=== PATIENT | female | born 1935 | race Two or more races ===

== ENCOUNTER 2022-04-21 11:37 | Inpatient (IN) | payer BC ==
[~2022-04-21] VITALS: Ht 162.6 cm; Wt 57.2 kg
[2022-04-21] MEDS ORDERED: SODIUM CHLORIDE 0.9% 1,000 ML IV ONE (13:00)
[2022-04-21 17:02] LABS: CHLORIDE 106 mEq/L (98-107)
[2022-04-21 19:12] LABS: BASOPHILS % 0.3 % (0.0-2.0); EOSINOPHILS % 0.8 % (0.0-5.0); HEMATOCRIT. 38.8 % (36.0-48.0); HEMOGLOBIN. 12.6 g/dL (12.0-16.0); LYMPHOCYTES % 19.3 % (20.0-50.0); MEAN CORPUSCULAR VOLUME 92.2 fL (81.0-99.0); MEAN PLATELET VOLUME 8.4 fl (7.4-10.4); MONOCYTES % 8.1 % (2.0-8.0); NEUTROPHILS % 71.5 % (40.0-76.0); PLATELET 182 x1000/uL (130-400); RED BLOOD CELL COUNT 4.21 mill/uL (4.2-5.4)
[2022-04-21 19:14] LABS: CLARITY URINE CLOUDY (CLEAR); COLOR URINE YELLOW (YELLOW); KETONES URINE NEGATIVE (NEGATIVE); LEUKOCYTE ESTERASE URINE 2+ (NEGATIVE); NITRITE URINE POSITIVE (NEGATIVE); OCCULT BLOOD URINE 1+ (NEGATIVE); PROTEIN URINE NEGATIVE (NEGATIVE); SPECIFIC GRAVITY URINE 1.011 (1.005-1.030); UROBILINOGEN URINE 0.2 E.U./dL (0.2-1.0)
[2022-04-21] MEDS ORDERED: CEFTRIAXONE 1 G PREMIX 50 ML IV ONE (19:30)
[2022-04-21] MEDS ORDERED: DEXTROSE 50% WATER 50ML SYRINGE IV PRN (22:15)
[2022-04-21] MEDS ORDERED: KETOROLAC 15MG/ML VIAL IV PRN (22:15)
[2022-04-21] MEDS ORDERED: NITROGLYCERIN 0.4MG TABLET SL SL PRN (22:15)
[2022-04-21] MEDS ORDERED: IPRATROPIUM/ALBUTEROL 0.5-3(2.5)MG/3ML NEB NEB PRN (22:15)
[2022-04-21] MEDS ORDERED: DOCUSATE SODIUM 100MG CAPSULE PO PRN (22:15)
[2022-04-21] MEDS ORDERED: ALBUTEROL (0.083%) 2.5MG/3ML NEB HHN PRN (22:15)
[2022-04-21] MEDS ORDERED: GUAIFENESIN 200MG/10ML SUGAR FREE UDC PO PRN (22:15)
[2022-04-21] MEDS ORDERED: ONDANSETRON HCL 4MG/2ML INJ IV PRN (22:15)
[2022-04-21] MEDS ORDERED: IPRATROPIUM BROMIDE (0.02%) 0.5MG/2.5ML NEB HHN PRN (22:15)
[2022-04-21] MEDS ORDERED: ACETAMINOPHEN 325MG TABLET PO PRN ×2 (22:15)
[2022-04-21] MEDS ORDERED: MAGNESIUM/ALUMINUM HYDROXIDE/SIMETHICONE 30ML UDC PO PRN (22:15)
[2022-04-21] MEDS: MEROPENEM 1,000 MG in SODIUM CHLORIDE 0.9% 100 ML IV SCH (23:45)
[2022-04-22] VITALS (8 sets, daily range): BP systolic 132–209; BP diastolic 57–94
[2022-04-22 00:06] LABS: T4 FREE 1.09 ng/dL (0.76-1.46)
[2022-04-22 00:31] LABS: FOLIC ACID (FOLATE) SERUM 12.2 ng/mL (>5.38)
[2022-04-22] MEDS: ZOLPIDEM TARTRATE 5MG TABLET PO PRN ×2 (01:31→21:36)
[2022-04-22] MEDS: CLONIDINE 0.1MG TABLET PO PRN ×2 (02:00→21:36)
[2022-04-22 02:49] LABS: *AMPHETAMINES SCREEN URINE NEGATIVE (NEGATIVE); *BARBITURATES SCREEN URINE NEGATIVE (NEGATIVE); *BENZODIAZEPINES SCREEN URINE NEGATIVE (NEGATIVE); *COCAINE SCREEN URINE NEGATIVE (NEGATIVE); CANNABINOID URINE SCREEN NEGATIVE (NEGATIVE); METHADONE URINE SCREEN NEGATIVE (NEGATIVE); OPIATES URINE SCREEN NEGATIVE (NEGATIVE); PHENCYCLIDINE URINE SCREEN NEGATIVE (NEGATIVE)
[2022-04-22] MEDS: INSULIN LISPRO 100 UNITS/ML SUBCUT SCH ×4 (06:31→21:00)
[2022-04-22] MEDS: BLOOD SUGAR DIAGNOSTIC STRIP TEST SCH ×4 (06:31→21:39)
[2022-04-22 06:45] LABS: BASOPHILS % 0.7 % (0.0-2.0); EOSINOPHILS % 1.2 % (0.0-5.0); HEMATOCRIT. 33.3 % (36.0-48.0); HEMOGLOBIN. 11.1 g/dL (12.0-16.0); LYMPHOCYTES % 24.3 % (20.0-50.0); MEAN CORPUSCULAR HEMOGLOBIN 30.6 pg (28.0-32.0); MEAN CORPUSCULAR VOLUME 91.6 fL (81.0-99.0); MEAN PLATELET VOLUME 8.7 fl (7.4-10.4); NEUTROPHILS % 62.8 % (40.0-76.0); PLATELET 175 x1000/uL (130-400); RED BLOOD CELL COUNT 3.63 mill/uL (4.2-5.4); RED CELL DISTRIBUTION WIDTH 14.6 % (11.6-14.6)
[2022-04-22] MEDS: MEROPENEM 1,000 MG in SODIUM CHLORIDE 0.9% 100 ML IV SCH ×3 (06:48→21:53)
[2022-04-22 07:33] LABS: CHLORIDE 106 mEq/L (98-107)
[2022-04-22 07:48] LABS: CREATINE KINASE 69 IU/L (26-192); CREATINE KINASE MB FRACTION 1.1 ng/mL (0.5-3.6); PHOSPHORUS 3.4 mg/dL (2.5-4.9)
[2022-04-22] MEDS: ENOXAPARIN 30MG/0.3ML SYR SUBCUT SCH (09:15)
[2022-04-22] MEDS: AMLODIPINE 10MG TABLET PO SCH (09:15)
[2022-04-22] MEDS: ASCORBIC ACID 500 MG TABLET PO SCH ×2 (09:15→21:36)
[2022-04-22] MEDS: ASPIRIN 81MG EC TABLET PO SCH (09:15)
[2022-04-22] MEDS: ZINC SULFATE 220 MG ( 50 ) CAPSULE PO SCH (09:15)
[2022-04-22] MEDS: FAMOTIDINE 20MG TABLET PO SCH (09:15)
[2022-04-22 16:24] LABS: CREATINE KINASE MB FRACTION 1.4 ng/mL (0.5-3.6)
[2022-04-23] VITALS: BP 184/88
[2022-04-23 04:00] VITALS: BP 185/76
[2022-04-23] MEDS: CLONIDINE 0.1MG TABLET PO PRN (04:32)
[2022-04-23] MEDS: BLOOD SUGAR DIAGNOSTIC STRIP TEST SCH ×4 (06:02→20:29)
[2022-04-23] MEDS: INSULIN LISPRO 100 UNITS/ML SUBCUT SCH ×4 (06:10→20:29)
[2022-04-23] MEDS: MEROPENEM 1,000 MG in SODIUM CHLORIDE 0.9% 100 ML IV SCH ×2 (06:12→13:09)
[2022-04-23 08:00] VITALS: BP 125/56
[2022-04-23] MEDS: ASCORBIC ACID 500 MG TABLET PO SCH ×2 (10:06→20:29)
[2022-04-23] MEDS: ASPIRIN 81MG EC TABLET PO SCH (10:06)
[2022-04-23] MEDS: FAMOTIDINE 20MG TABLET PO SCH (10:06)
[2022-04-23] MEDS: ENOXAPARIN 30MG/0.3ML SYR SUBCUT SCH (10:07)
[2022-04-23] MEDS: ZINC SULFATE 220 MG ( 50 ) CAPSULE PO SCH (10:07)
[2022-04-23] MEDS: AMLODIPINE 10MG TABLET PO SCH (10:07)
[2022-04-23 12:00] VITALS: BP 137/71
[2022-04-23 16:00] VITALS: BP 148/62
[2022-04-23] MEDS ORDERED: ATOR20TA65 PO (17:15)
[2022-04-23] MEDS ORDERED: MEMA5TAB42 PO (17:15)
[2022-04-23] MEDS ORDERED: BRIM10DR18 (17:15)
[2022-04-23] MEDS ORDERED: ATEN50TA MT (17:15)
[2022-04-23 20:00] VITALS: BP 150/58
[2022-04-24] VITALS: BP 158/75
[2022-04-24 04:00] VITALS: BP 161/73
[2022-04-24] MEDS: MEROPENEM 1,000 MG in SODIUM CHLORIDE 0.9% 100 ML IV SCH ×2 (05:02→18:54)
[2022-04-24] MEDS: CLONIDINE 0.1MG TABLET PO PRN (05:03)
[2022-04-24] MEDS: INSULIN LISPRO 100 UNITS/ML SUBCUT SCH ×4 (05:52→21:55)
[2022-04-24] MEDS: BLOOD SUGAR DIAGNOSTIC STRIP TEST SCH ×4 (05:52→21:50)
[2022-04-24 08:00] VITALS: BP 169/78
[2022-04-24] MEDS: FAMOTIDINE 20MG TABLET PO SCH (09:06)
[2022-04-24] MEDS: ZINC SULFATE 220 MG ( 50 ) CAPSULE PO SCH (09:06)
[2022-04-24] MEDS: ENOXAPARIN 30MG/0.3ML SYR SUBCUT SCH (09:06)
[2022-04-24] MEDS: ASPIRIN 81MG EC TABLET PO SCH (09:06)
[2022-04-24] MEDS: ASCORBIC ACID 500 MG TABLET PO SCH ×2 (09:06→21:01)
[2022-04-24] MEDS: AMLODIPINE 10MG TABLET PO SCH (09:06)
[2022-04-24 12:00] VITALS: BP 152/80
[2022-04-24 16:00] VITALS: BP 134/74
[2022-04-24 20:00] VITALS: BP 186/69
[2022-04-24] MEDS: ZOLPIDEM TARTRATE 5MG TABLET PO PRN (22:52)
[2022-04-25] VITALS: BP 163/81
[2022-04-25 04:00] VITALS: BP 179/86
[2022-04-25] MEDS: MEROPENEM 1,000 MG in SODIUM CHLORIDE 0.9% 100 ML IV SCH ×2 (05:41→17:54)
[2022-04-25] MEDS: BLOOD SUGAR DIAGNOSTIC STRIP TEST SCH ×4 (05:51→20:44)
[2022-04-25] MEDS: INSULIN LISPRO 100 UNITS/ML SUBCUT SCH ×4 (05:51→20:44)
[2022-04-25 08:00] VITALS: BP 170/87
[2022-04-25] MEDS: FAMOTIDINE 20MG TABLET PO SCH (08:02)
[2022-04-25] MEDS: ZINC SULFATE 220 MG ( 50 ) CAPSULE PO SCH (08:02)
[2022-04-25] MEDS: ASCORBIC ACID 500 MG TABLET PO SCH ×2 (08:02→20:42)
[2022-04-25] MEDS: ASPIRIN 81MG EC TABLET PO SCH (08:02)
[2022-04-25] MEDS: AMLODIPINE 10MG TABLET PO SCH (08:02)
[2022-04-25] MEDS: ENOXAPARIN 30MG/0.3ML SYR SUBCUT SCH (08:03)
[2022-04-25] MEDS ORDERED: CEPH500C2 MT (11:09)
[2022-04-25 12:00] VITALS: BP 149/67
[2022-04-25 16:00] VITALS: BP 175/75
[2022-04-25 20:00] VITALS: BP 188/97
[2022-04-25] MEDS: CLONIDINE 0.1MG TABLET PO PRN (20:43)
[2022-04-26] VITALS: BP 144/85
[2022-04-26 04:00] VITALS: BP 181/83
[2022-04-26] MEDS: CLONIDINE 0.1MG TABLET PO PRN (04:54)
[2022-04-26] MEDS: MEROPENEM 1,000 MG in SODIUM CHLORIDE 0.9% 100 ML IV SCH (04:54)
[2022-04-26] MEDS: INSULIN LISPRO 100 UNITS/ML SUBCUT SCH ×2 (06:05→11:36)
[2022-04-26] MEDS: BLOOD SUGAR DIAGNOSTIC STRIP TEST SCH ×2 (06:05→11:31)
[2022-04-26 07:58] VITALS: BP 146/67
[2022-04-26] MEDS: ENOXAPARIN 30MG/0.3ML SYR SUBCUT SCH (09:15)
[2022-04-26] MEDS: ASPIRIN 81MG EC TABLET PO SCH (09:15)
[2022-04-26] MEDS: ASCORBIC ACID 500 MG TABLET PO SCH (09:15)
[2022-04-26] MEDS: FAMOTIDINE 20MG TABLET PO SCH (09:15)
[2022-04-26] MEDS: ZINC SULFATE 220 MG ( 50 ) CAPSULE PO SCH (09:15)
[2022-04-26] MEDS: AMLODIPINE 10MG TABLET PO SCH (09:15)
[2022-04-26 09:45] VITALS: BP 146/67
[2022-04-26 12:00] VITALS: BP 131/63
[2022-04-26] MEDS ORDERED: CEFTRIAXONE 1,000 MG in DEXTROSE 5% WATER 50 ML IV SCH (14:30)
== END 2022-04-26 12:30 | disposition home or self-care (01) | DRG 871 ==
LOC: ER 11:37 → EDBEDREQ 21:55 → EDBEDREQTM 21:55 → SUPCPDRO 23:08 → MICUSO 23:28 → 7EST 04-22 00:57
PROVIDERS: ADMIT Internal Medicine; ATTEND Internal Medicine
DX: A41.9 Sepsis, unspecified organism (principal); G92.8 Other toxic encephalopathy; N39.0 Urinary tract infection, site not specified; E44.1 Mild protein-calorie malnutrition; E11.9 Type 2 diabetes mellitus without complications; I10 Essential (primary) hypertension; Z20.822 Contact with and (suspected) exposure to COVID-19; E78.00 Pure hypercholesterolemia, unspecified; F03.90 Unspecified dementia, unspecified severity, without behavioral disturbance, psychotic disturbance, mood disturbance, and anxiety; Z68.21 Body mass index [BMI] 21.0-21.9, adult; B96.20 Unspecified Escherichia coli [E. coli] as the cause of diseases classified elsewhere
CPT/HCPCS: 36415; 71046; 80053; 80061; 80305; 81003; 82550; 82553; 82607; 82746; 82962; 83036; 83540; 83550; 83605; 83735; 83880; 84100; 84145; 84439; 84443; 84484; 85025; 87077; 87186; 87420; 87426; 87804; 93005; 93306; 93970; 97116; 97162; 97166; 97530; 99285; C9803; J0696; J1650; J1815; J1885; J2185; J7030; J7050; J7060